=== PATIENT | male | born 2000 | race Hispanic/Latino ===

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

== ENCOUNTER 2021-01-14 11:39 | Emergency (ER) | payer MEDICAID | END 2021-01-14 12:44 | disposition home or self-care (01) | LOC: EDH 11:39 | DX: S90.211A Contusion of right great toe with damage to nail, initial encounter (principal); W20.8XXA Other cause of strike by thrown, projected or falling object, initial encounter; Y93.89 Activity, other specified; Y92.89 Other specified places as the place of occurrence of the external cause; Y99.8 Other external cause status | CPT/HCPCS: 11740; 73660 ==

== ENCOUNTER 2021-01-15 18:35 | Emergency (ER) | payer MEDICAID | END 2021-01-15 20:04 | disposition home or self-care (01) | LOC: EDH 18:35 | DX: S90.211A Contusion of right great toe with damage to nail, initial encounter (principal); W20.8XXA Other cause of strike by thrown, projected or falling object, initial encounter; Y93.89 Activity, other specified; Y92.89 Other specified places as the place of occurrence of the external cause; Y99.8 Other external cause status | CPT/HCPCS: 11740 ==

== ENCOUNTER 2021-01-18 19:16 | Emergency (ER) | payer MEDICAID ==
[2021-01-18] MEDS ORDERED: LIDOCAINE HCL 1% 20 ML VIAL ONE (20:07)
[2021-01-18] MEDS ORDERED: IBUPROFEN 400 MG TABLET ONE (20:41)
[2021-01-18] MEDS ORDERED: ACETAMINOPHEN EXTRA STRENGTH 500 MG TABLET ONE (20:42)
== END 2021-01-18 20:53 | disposition home or self-care (01) ==
LOC: EDH 19:16
DX: S60.112A Contusion of left thumb with damage to nail, initial encounter (principal); X58.XXXA Exposure to other specified factors, initial encounter; Y93.89 Activity, other specified; Y92.098 Other place in other non-institutional residence as the place of occurrence of the external cause; Y99.8 Other external cause status
CPT/HCPCS: 73140